=== PATIENT | female | born 1980 | race Caucasian/White ===

== ENCOUNTER → 2019-01-28 17:12 | Outpatient (CLI) | payer OTHER, SELFPAY ==
[2019-01-28 18:26] LABS: Rubella Antibody IgG 47.8 IU/mL (>15)
[2019-01-30 17:58] LABS: Rubeola Measles IgG > 300.00 AU/mL (< 25.00)
== END ==
PROVIDERS: PCP Family Medicine; Visit Provider Family Medicine
DX: Z01.84 Encounter for antibody response examination (principal)
CPT/HCPCS: 36415; 86735; 86762; 86765

== ENCOUNTER → 2020-06-07 15:01 | Outpatient (CLI) | payer OTHER, SELFPAY ==
[2020-06-07 15:59] LABS: COVID19 -Nasal RAPID Negative (Negative)
== END ==
PROVIDERS: PCP Student in an Organized Health Care Education/Training Program; Visit Provider Nurse Practitioner
DX: Z20.822 Contact with and (suspected) exposure to COVID-19 (principal)
CPT/HCPCS: 87635

== ENCOUNTER 2020-06-09 12:09 | Day surgery (SDC) | payer OTHER, SELFPAY ==
--- NOTE | 2020-06-09 | PATH_ITS ---
[facility] Accession Number: [id number] . 01 Material submitted: . sigmoid colon - SIGMOID POLYP 6 MM . 02 Diagnosis: Sigmoid Colon Polyp, 6 mm, Biopsy: Tubular adenoma. MRV 06/14/2020 1135 Local . 02 Electronically signed: . Garth Eddy MD, PhD, Pathologist NPI- [id number] . 01 Gross description: . SIGMOID POLYP 6 MM: Received in formalin are 2 fragment(s) of tay, soft tissue measuring 0.2 x 0.2 x 0.2 cm to 0.4 x 0.3 x 0.3 cm submitted entirely in 1 cassette(s) /JOHN 06/12/2020 1909 Local . 02 Pathologist provided ICD-10: D12.5 . 02 CPT . 567342 [facility]formed at: [facility] [address] [id number] MD Gavin Longoria MD Phone: [phone] [facility]formed at: [facility] [address] [place], [place] [id number] MD Daniella Rosa MD Phone: [phone]
--- NOTE | 2020-06-09 12:03 | P.HP_ITS ---
History of Present Illness History of Present Illness Date Patient Seen: 06/09/20 Chief complaint: SDC Narrative: 39 Years Old Female seen today for consideration of a screening colonoscopy. Her mother was diagnosed with stage III colon cancer in her mid 30s. She has had a colonoscopy at age 13 and 1 polyp was found and removed, not sure on the pathology. Otherwise, there have been no lower GI symptoms suggesting disease such as change in bowel habits, bleeding, abdominal pain or anemia. Overall health issues have been stable, including no major cardiac events for at least 6 weeks. 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 Patient History Family & Social History Tobacco & Substance use: Smoking Status Never smoker Meds Home Medications and Allergies Home Medications Medication Instructions Recorded Confirmed Type fluticasone propionate 50 2 spray NASAL DAILY 06/23/18 06/09/20 History mcg/actuation nasal spray,suspension levothyroxine 100 mcg capsule 100 mcg PO DAILY 06/23/18 06/09/20 History vitamin B complex 1 tab PO DAILY 06/23/18 06/09/20 History loratadine 10 mg PO DAILY 06/09/20 06/09/20 History multivitamin [Multi-Daily] 1 tab PO DAILY 06/09/20 06/09/20 History Allergies Allergy/AdvReac Type Severity Reaction Status Date / Time latex Allergy Verified 06/09/20 12:24 hydrocodone AdvReac Severe SEVERE Verified 06/09/20 12:24 VOMITING Review of Systems Review of Systems ROS: Yes All systems reviewed with the patient and are negative except as otherwise documented Exam Narrative Exam Narrative: General: well developed, well nourished, in no acute distress, Head: normocephalic and atraumatic, Lungs: normal respiratory effort, clear bilaterally to auscultation, no wheezes rales or rhonchi. Heart: normal rate and regular rhythm, no murmurs, rubs, gallops, or clicks, Abdomen: abdomen soft and non-tender without masses, organomegaly, or abdominal wall hernias, bowel sounds positive. Skin: intact without suspicious lesions or rashes, Psych: alert and cooperative; normal mood and affect; normal attention span and concentration; cognition, remote and recent memory appear to be intact, Assessment & Plan Assessment & Plan narrative: 1. Family history of colon cancer less than 50 2. History of colon polyps 3. Screening for colon cancer Plan for colonoscopy. The nature and character of the procedure as well as anticipated results were discussed. The possibility of not completing the procedure was also discussed. Possible complications including aspiration pneumonia, bleeding, perforation and reaction to medications either for sedation or preparation and missed lesions were discussed. Questions were answered and proceeding to the colonoscopy was elected. Informed consent signed. I sincerely appreciate the referral allowing me to participate in this patient's care. Please contact me with any questions or concerns.
--- NOTE | 2020-06-09 12:05 | PM.OP.ENDO ---
Operative Date/Time/Diagnoses Date of procedure: 06/09/20 Procedure Notes SCOAP/Timeout: 1:04 p.m. Procedure in detail: ENDOSCOPIST: Lynda Roman MD Sedation RN: Cornelius Thomas RN Sedation start time: 1:05 p.m. Sedation end time: 1:32 p.m. PROCEDURE: Colonoscopy with biopsy INDICATIONS: 1. Family history colon cancer less than 50 2. History of colon polyps 3. Screening for colon cancer MEDICATION: Levsin 0.125 mg sublingual, incremental doses of Versed and fentanyl until appropriate level sedation achieved. ASA CLASS: 2 CECAL WITHDRAWAL TIME: 11 minutes COMPLICATIONS: None. EXTENT OF PROCEDURE: Cecum. QUALITY OF PREP: Good with portions of liquid stool. PROCEDURE: Prior to insertion of the colonoscope, a digital rectal examination was accomplished with circumferential palpation of the distal rectal mucosa without significant findings being noted. The high-definition pediatric colonoscope was passed into the rectum in the usual fashion and advanced over to the cecum without difficulty. The ileocecal valve, appendiceal stoma, and medial wall all could be inspected and no abnormalities were seen. ASCENDING COLON: As the colonoscope was withdrawn, care was taken to expose and inspect the haustral folds and no abnormalities were seen. HEPATIC FLEXURE: Normal, no polyps, diverticula or other abnormalities. TRANSVERSE COLON: Normal, no polyps, diverticula or other abnormalities. DESCENDING COLON: Normal, no polyps, diverticula or other abnormalities. SIGMOID COLON: 6 mm polyp removed with cold biopsy forceps, excellent hemostasis. Otherwise, normal, no diverticula or other abnormalities. RECTUM: Normal. J maneuver was produced. There was no significant perianal disease. The J maneuver was broken. The remainder of the rectum was inspected and there was moderate external hemorrhoid disease. The scope was withdrawn. IMPRESSION: 1. Sigmoid polyp x1, 6 mm, removed cold biopsy forceps 2. External hemorrhoid disease, moderate PLAN: 1. Follow-up in clinic status post pathology results. The possibility of a missed lesion including a malignancy has been discussed with the patient previously. Potential alarm symptoms have been discussed and should be reported immediately.
[2020-06-09 12:28] VITALS: BP 135/77; PULSE 78; RESP 16; TEMP 36.7; O2SAT 100; BMI 35.4
[2020-06-09] MEDS: LACTATED RINGERS 1,000 ML 42 ML IV (12:51)
[2020-06-09] MEDS: MIDAZOLAM 5 MG/5 ML VIAL IV (13:31)
[2020-06-09] MEDS: fentaNYL 250 MCG/5 ML INJ IV (13:31)
[2020-06-09 13:38] VITALS: BP 121/66; PULSE 84; RESP 20; TEMP 36.7; O2SAT 100
[2020-06-09 13:43] VITALS: BP 124/68; PULSE 98; RESP 18; O2SAT 100
[2020-06-09 13:48] VITALS: BP 103/66; PULSE 83; RESP 14; O2SAT 100
[2020-06-09 13:53] VITALS: BP 119/68; PULSE 78; RESP 16; TEMP 37.1; O2SAT 100
== END 2020-06-09 14:14 | disposition home or self-care (01) ==
PROVIDERS: PCP Student in an Organized Health Care Education/Training Program; Referring Provider Student in an Organized Health Care Education/Training Program; Visit Provider Student in an Organized Health Care Education/Training Program
PROC: 0DJD8ZZ Inspection of Lower Intestinal Tract, Via Natural or Artificial Opening Endoscopic (ICD-10-PCS; CPT 45378; principal; 2020-06-09 13:00)
DX: K64.4 Residual hemorrhoidal skin tags (principal); Z12.11 Encounter for screening for malignant neoplasm of colon; Z80.0 Family history of malignant neoplasm of digestive organs; Z86.010 Personal history of colon polyps; E03.9 Hypothyroidism, unspecified; D12.5 Benign neoplasm of sigmoid colon
CPT/HCPCS: 45380; J2250; J3010

== ENCOUNTER → 2025-04-21 16:44 | Outpatient (CLI) | payer OTHER, SELFPAY ==
[2025-04-21 17:11] LABS: Add Manual Diff / Slide Review NO; Hematocrit 38.2 % (36-46); Hemoglobin 13.3 g/dL (12.0-16.0); Lymphocytes Absolute Auto 2300 /uL (1100-4500); Mean Corpuscular HGB Conc 34.7 % (30-36); Mean Corpuscular Hemoglobin 32.5 PG (26-34); Mean Corpuscular Volume 93.7 fL (80-100); Platelet Count 200 X10^3/uL (150-400)
[2025-04-21 17:24] LABS: Hemoglobin A1C% w Est Avg Glu 4.8 % (4.0-6.0)
[2025-04-21 18:11] LABS: Alanine Aminotransferase 20 IU/L (<35); Albumin 4.4 g/dL (3.5-5.0); Albumin Globulin Ratio 1.7 (1.0-2.8); Alkaline Phosphatase 51 U/L (38-126); Blood Urea Nitrogen 15 mg/dL (7-17); Calcium 9.1 mg/dL (8.4-10.2); Carbon Dioxide 26 mmol/L (22-32); Chloride 105 mmol/L (98-107); Estimated Glomerular Filt Rate > 60 mL/min (>60); Globulin 2.6 g/dL (1.7-4.1); Glucose 91 mg/dL (70-99); HEMOLYSIS < 15 (0-50); Potassium 3.8 mmol/L (3.4-5.1); Sodium 139 mmol/L (137-145); Total Protein 7.0 g/dL (6.3-8.2)
[2025-04-21 18:29] LABS: Follicle Stimulating Hormone 7.91 mIU/mL
[2025-04-21 18:42] LABS: TSH w/ Reflex to FT4 1.52 uIU/mL (0.47-4.68)
[2025-04-21 19:33] LABS: Estradiol, Total 81.7 pg/mL
== END ==
PROVIDERS: PCP Family Medicine; Referring Provider Obstetrics & Gynecology; Visit Provider Obstetrics & Gynecology
DX: N92.6 Irregular menstruation, unspecified (principal)
CPT/HCPCS: 36415; 80053; 82397; 82670; 83001; 83036; 84146; 84443; 85025

== ENCOUNTER → 2025-04-29 07:22 | Outpatient (CLI) | payer OTHER, SELFPAY ==
--- NOTE | 2025-04-29 07:23 | DI.US.S_ITS ---
PROCEDURE: US PELVIC COMPLETE INDICATIONS: INFERTILITY TECHNIQUE: Real-time scanning was performed of the pelvic organs, with image documentation. Additional endovaginal scanning was necessary due to incomplete visualization of the adnexal and endometrial structures by transabdominal scanning. COMPARISON: None. FINDINGS: Uterus: Uterus is anteverted and normal in size at 8.9 x 4.6 x 5.8 cm. The myometrium is heterogeneous. The endometrium measures 8.9 mm combined thickness. Left posterior intramural fibroid measuring 2.4 x 3.6 x 2.3 cm. Ovaries: The right ovary measures 3.1 x 1.8 x 3.1 cm, with a calculated ovarian volume of 9.2 cc. The left ovary measures 3.2 x 3.6 x 1.4 cm, with a calculated ovarian volume of 8.6 cc. The ovaries have a normal sonographic appearance. Less than 12 follicles can be seen in each ovary. No adnexal masses are seen. Other: No pathologic free abdominal or pelvic fluid. IMPRESSION: Left posterior intramural fibroid measuring 3.6 cm. Otherwise, normal appearance of the uterus and ovaries. We strive to produce accurate, complete, and clear reports of imaging services. To assist us in improving patient care, this report was composed using standard report templates and voice recognition software. Therefore, it may contain abnormal punctuation, insertions and/or omissions. Occasional wrong-word or sound-alike substitutions may occur. Though we review the report and make efforts to correct it, we do recommend that the report be read carefully in proper context to recognize any text inaccuracies. Approved by: Michael Maki M.D. on 04/29/2025 at 11:15
== END ==
LOC: US 07:23
PROVIDERS: PCP Family Medicine; Referring Provider Obstetrics & Gynecology; Visit Provider Obstetrics & Gynecology
DX: N92.6 Irregular menstruation, unspecified (principal); D25.1 Intramural leiomyoma of uterus
CPT/HCPCS: 76830; 76856

== ENCOUNTER → 2025-05-02 16:23 | Outpatient (CLI) | payer OTHER, SELFPAY ==
[2025-05-03 20:10] LABS: Progesterone, Total 9.84 ng/mL
== END ==
PROVIDERS: PCP Family Medicine; Referring Provider Obstetrics & Gynecology; Visit Provider Obstetrics & Gynecology
DX: N97.9 Female infertility, unspecified (principal); N92.6 Irregular menstruation, unspecified
CPT/HCPCS: 36415; 84144; 84146